=== PATIENT | female | born 1975 | race American Indian/Alaskan Native ===

== ENCOUNTER 2016-07-18 08:09 | Emergency (ER) | payer OTHER ==
[2016-07-18 08:35] VITALS: BP 152/102
--- NOTE | 2016-07-18 09:22 | Emergency Department Report ---
ED Extremity Problem HPI - General Chief complaint: Extremity Injury, Lower Stated complaint: LEFT KNEE AND ANKLE PAIN Time Seen by Provider: 07/18/16 09:16 Source: patient Mode of arrival: Ambulatory Limitations: No Limitations - History of Present Illness Initial comments: 40-year-old female comes in today for complaint of right knee and ankle pain. Patient denies any trauma to the leg. 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 Patient does have a past medical history of hypertension she is currently on amlodipine 10 mg by mouth daily as well as lisinopril 40 mg by mouth daily. She does admit that her primary care provider struggling with maintaining her blood pressure. Patient does have a history of migraines which responds to BC mett-slo-yebymfa med. Patient does admit that she's had a hysterectomy. MD Complaint: extremity pain, extremity swelling -: month(s) (2) Location: right, knee History of Same: Yes Radiation: none Severity scale (0 -10): 6 Quality: aching, sharp Consistency: intermittent Improves with: medication, rest Worsens with: walking Associated Symptoms: denies other symptoms - Related Data Previous Rx's Medication Instructions Recorded Last Taken Type Lisinopril [Zestril TAB] 20 mg PO DAILY #30 tablet 09/18/13 Unknown Rx predniSONE [Deltasone] 20 mg PO QDAY #12 tab 09/18/13 Unknown Rx Ibuprofen [Motrin] 800 mg PO Q8H PRN #20 tablet 11/22/13 Unknown Rx Potassium Chloride [K-Dur] 20 meq PO QDAY #5 tablet 08/25/14 Unknown Rx Lisinopril [Zestril TAB] 40 mg PO QDAY #30 tablet 10/07/15 Unknown Rx Ibuprofen [Motrin 800 MG tab] 800 mg PO Q8HR PRN #90 tablet 07/18/16 Unknown Rx Allergies Allergy/AdvReac Type Severity Reaction Status Date / Time shellfish derived Allergy Hives Verified 09/17/13 20:33 ED Review of Systems ROS: Stated complaint: LEFT KNEE AND ANKLE PAIN Other details as noted in HPI ED Past Medical Hx - Past Medical History Previous Medical History?: Yes Hx Hypertension: Yes Hx CVA: No Hx Heart Attack/AMI: No Hx Congestive Heart Failure: No Hx Diabetes: No Hx Deep Vein Thrombosis: No Hx Pulmonary Embolism: No Hx GERD: No Hx Liver Disease: No Hx Renal Disease: No Hx of Cancer: No Hx Sickle Cell Disease: No Hx Arthritis: No Hx Headaches / Migraines: Yes (migraines) Hx Seizures: No Hx Kidney Stones: No Hx Psychiatric Treatment: No Hx Asthma: No Hx COPD: No Hx Tuberculosis: No Hx Dementia: No Hx HIV: No Additional medical history: Migraines - Surgical History Hx Coronary Stent: No Hx Open Heart Surgery: No Hx Pacemaker: No Hx Internal Defibrillator: No Hx Cholecystectomy: No Hx Appendectomy: No Hx Breast Surgery: No Additional Surgical History: hysterectomy - Social History Smoking Status: Never Smoker - Medications Home Medications: Home Medications Medication Instructions Recorded Confirmed Last Taken Type Lisinopril [Zestril TAB] 20 mg PO DAILY #30 tablet 09/18/13 11/22/13 Unknown Rx predniSONE [Deltasone] 20 mg PO QDAY #12 tab 09/18/13 11/22/13 Unknown Rx Ibuprofen [Motrin] 800 mg PO Q8H PRN #20 tablet 11/22/13 Unknown Rx Potassium Chloride [K-Dur] 20 meq PO QDAY #5 tablet 08/25/14 Unknown Rx Lisinopril [Zestril TAB] 40 mg PO QDAY #30 tablet 10/07/15 Unknown Rx Ibuprofen [Motrin 800 MG tab] 800 mg PO Q8HR PRN #90 tablet 07/18/16 Unknown Rx ED Physical Exam - General Limitations: No Limitations General appearance: alert, in no apparent distress - Head Head exam: Present: atraumatic, normocephalic - Expanded Lower Extremity Exam Right Knee exam: Present: full ROM, crepidus. Absent: tenderness, swelling, ecchymosis, deformity Lower Leg exam: Present: normal inspection, full ROM. Absent: tenderness, swelling Ankle exam: Present: normal inspection, full ROM, swelling (lateral malleolus). Absent: tenderness Neuro vascular tendon exam: Present: no vascular compromise. Absent: pulse deficit ED Course Vital Signs 07/18/16 07/18/16 08:34 08:49 Temperature 98.3 F 98.3 F Pulse Rate 81 81 Respiratory 18 12 Rate Blood Pressure 152/102 Blood Pressure 152/102 [Right] O2 Sat by Pulse 100 100 Oximetry ED Medical Decision Making - Radiology Data Radiology results: report reviewed, image reviewed Findings: Narrowing of medial compartment and patellofemoral compartment knee joint. Sclerotic articular surfaces with peripheral osteophytes suggestive of degenerative changes. No fracture. No soft tissue calcification. Impression: Moderate degenerative changes medial compartment of the knee joint with mild degenerative changes of the patellofemoral compartment. Transcribed By: PTP Dictated By: HANG BUNCH MD Electronically Authenticated By: HANG BUNCH MD Signed Date/Time: 07/18/16949 DD/ 7 TD/TT: 07/18/16949 - Medical Decision Making Patient's been evaluated by this provider in fast track. We will give patient ibuprofen 800 mg for pain control. We will order a x-ray of the right knee. Discussed patient that this is most likely the beginnings of arthritis. Patient verbalizes understanding. Critical care attestation.: If time is entered above; I have spent that time in minutes in the direct care of this critically ill patient, excluding procedure time. ED Disposition Clinical Impression: Degenerative joint disease of knee, right Qualifiers: Osteoarthritis type: unspecified Qualified Code(s): M17.9 - Osteoarthritis of knee, unspecified Ankle pain, right Qualifiers: Chronicity: unspecified Qualified Code(s): M25.571 - Pain in right ankle and joints of right foot Disposition: DISCHARGED TO HOME OR SELFCARE Is pt being admited?: No Does the pt Need Aspirin: No Condition: Stable Additional Instructions: Please take naproxen as needed. U have her overuse of your knees and also moderate degenerative changes. Recommend to follow-up with orthopedic.. Prescriptions: Ibuprofen [Motrin 800 MG tab] 800 mg PO Q8HR PRN #90 tablet PRN Reason: Pain Referrals: PRIMARY CAREMD [Primary Care Provider] - 3-5 Days STORM HERCULES MD [Staff Physician] - 3-5 Days [facility] [Provider Group] - 3-5 Days [facility] [Provider Group] - 3-5 Days [facility], [Provider Group] - 3-5 Days Forms: Work/School Release Form(ED)
--- NOTE | 2016-07-18 09:59 | XRay Report ---
Right knee 2 views: History: Knee pain and swelling. Findings: Narrowing of medial compartment and patellofemoral compartment knee joint. Sclerotic articular surfaces with peripheral osteophytes suggestive of degenerative changes. No fracture. No soft tissue calcification. Impression: Moderate degenerative changes medial compartment of the knee joint with mild degenerative changes of the patellofemoral compartment.
[2016-07-18] MEDS ORDERED: NAPROSYN PO ONE (10:00)
== END 2016-07-18 10:45 | disposition home or self-care (01) ==
LOC: ED 08:09
DX: M17.11 Unilateral primary osteoarthritis, right knee (principal); M25.571 Pain in right ankle and joints of right foot; I10 Essential (primary) hypertension; G43.909 Migraine, unspecified, not intractable, without status migrainosus; Z91.013 Allergy to seafood

== ENCOUNTER 2017-05-04 16:33 | Emergency (ER) | payer OTHER ==
[2017-05-04 17:12] VITALS: BP 161/104
== END 2017-05-05 02:31 | disposition left against medical advice (07) ==
LOC: ED 16:33
DX: J11.1 Influenza due to unidentified influenza virus with other respiratory manifestations (principal); Z53.21 Procedure and treatment not carried out due to patient leaving prior to being seen by health care provider

== ENCOUNTER 2017-08-03 17:51 | Emergency (ER) | payer SELFPAY ==
[2017-08-03] MEDS ORDERED: MOTRIN PO ONE (20:09)
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
--- NOTE | 2017-08-03 20:21 | XRay Report ---
FINAL REPORT EXAM: XR ANKLE 3+V RT HISTORY: pain/swelling right ankle r/t injury TECHNIQUE: 3 views of right ankle. PRIORS: None. FINDINGS: No apparent fracture or dislocation. Ankle mortise maintained. Mild plantar calcaneal spurring. Lateral soft tissue edema. IMPRESSION: 1. No acute osseous abnormality. 2. Soft tissue edema.
[2017-08-03 20:58] VITALS: BP 139/91
== END 2017-08-03 20:56 | disposition home or self-care (01) ==
LOC: ED 17:51
DX: M25.571 Pain in right ankle and joints of right foot (principal); M79.89 Other specified soft tissue disorders; I10 Essential (primary) hypertension; G43.909 Migraine, unspecified, not intractable, without status migrainosus; Z90.710 Acquired absence of both cervix and uterus; Z91.013 Allergy to seafood

== ENCOUNTER 2019-03-02 17:04 | Emergency (ER) | payer OTHER ==
--- NOTE | 2019-03-02 17:16 | Event Note ---
ED Screening Note Date of service: 03/02/19 Time: 17:15 ED Screening Note: This is a 43 y.o. F. that presents to the ER with headache for 3 days. PMH of migraines, DJD, and HTN Taking goody powder with no relief. This initial assessment/diagnostic orders/clinical plan/treatment(s) is/are sub ject to change based on patients health status, clinical progression and re- assessment by fellow clinical providers in the ED. Further treatment and workup at subsequent clinical providers discretion. Patient/guardian urged not to elope from the ED as their condition may be serious if not clinically assessed and managed. Initial orders include:
[2019-03-02 17:17] VITALS: BP 114/87
[2019-03-02] MEDS ORDERED: predniSONE 20 MG TAB PO ONE (17:50)
[2019-03-02] MEDS ORDERED: KETOROLAC 60 MG/2 ML INJ IM ONE (17:50)
--- NOTE | 2019-03-02 17:50 | Emergency Department Report ---
ED Headache HPI - General Chief Complaint: Headache Stated Complaint: MIGRANE 3 DAYS Time Seen by Provider: 03/02/19 17:15 Source: patient - History of Present Illness Initial Comments: 43 YO COMES TO ER W A/C MIGRAINE PAIN HOME MEDS PPI CARBAMAZEPINE COREG TONYA AMITRIP. IS NOT TAKING HER FIORCET/IMITREX OR OTHER MIGRAINE MEDS NO TRAUMA NO FEVER NO CHILLS AMBULATORY AND IN NAD ALLERGY LISINOPRIL AND SHELL FISH Recent Head Trauma: chronic headaches Associated Symptoms: denies symptoms Allergies/Adverse Reactions: Allergies shellfish derived Allergy (Verified 09/17/13 20:33) Hives Home Medications: Ambulatory Orders Butalb/Acetamin/Caff 50-325-40 [Fioricet 50-325-40] 1 tab PO Q8HR PRN #10 tablet 03/02/19 ED Review of Systems ROS: Stated complaint: MIGRANE 3 DAYS Other details as noted in HPI Comment: All other systems reviewed and negative ED Past Medical Hx - Past Medical History Previous Medical History?: Yes Hx Hypertension: Yes Hx CVA: No Hx Heart Attack/AMI: No Hx Congestive Heart Failure: No Hx Diabetes: No Hx Deep Vein Thrombosis: No Hx Pulmonary Embolism: No Hx GERD: No Hx Liver Disease: No Hx Renal Disease: No Hx Sickle Cell Disease: No Hx Arthritis: No Hx Headaches / Migraines: Yes (migraines) Hx Seizures: No Hx Kidney Stones: No Hx Psychiatric Treatment: No Hx Asthma: No Hx COPD: No Hx Tuberculosis: No Hx Dementia: No Hx HIV: No Additional medical history: Migraines - Surgical History Past Surgical History?: Yes Hx Coronary Stent: No Hx Open Heart Surgery: No Hx Pacemaker: No Hx Internal Defibrillator: No Hx Cholecystectomy: No Hx Appendectomy: No Hx Breast Surgery: No Additional Surgical History: hysterectomy/Fx jaw 2018 - Family History Family history: no significant - Social History Smoking Status: Never Smoker Substance Use Type: None - Medications Home Medications: Home Medications Medication Instructions Recorded Confirmed Last Taken Type Butalb/Acetamin/Caff 50-325-40 1 tab PO Q8HR PRN #10 tablet 03/02/19 Unknown Rx [Fioricet 50-325-40] ED Physical Exam - General Limitations: No Limitations General appearance: alert, in no apparent distress - Head Head exam: Present: atraumatic, normocephalic - Eye Eye exam: Present: normal appearance - ENT ENT exam: Present: mucous membranes moist - Neck Neck exam: Present: normal inspection - Respiratory Respiratory exam: Present: normal lung sounds bilaterally. Absent: respiratory distress - Cardiovascular Cardiovascular Exam: Present: regular rate, normal rhythm. Absent: systolic murmur, diastolic murmur, rubs, gallop - GI/Abdominal GI/Abdominal exam: Present: soft, normal bowel sounds - Extremities Exam Extremities exam: Present: normal inspection - Back Exam Back exam: Present: normal inspection - Neurological Exam Neurological exam: Present: alert, oriented X3 - Psychiatric Psychiatric exam: Present: normal affect, normal mood - Skin Skin exam: Present: warm, dry, intact, normal color. Absent: rash ED Course Vital Signs 03/02/19 17:14 Temperature 98.7 F Pulse Rate 88 Respiratory 18 Rate Blood Pressure 114/87 O2 Sat by Pulse 98 Oximetry ED Medical Decision Making - Medical Decision Making Vital Signs 03/02/19 17:14 Temperature 98.7 F Pulse Rate 88 Respiratory 18 Rate Blood Pressure 114/87 O2 Sat by Pulse 98 Oximetry NO TRAUMA NO FEVER OR CHILLS SEVERAL DAY HX IN SETTING OF A/C MIGRAINE PAIN NO N /V NO PHOTOPHOBIA NEURO INTACT AMBULATORY AND NON ILL APPEARING "MY USUAL MIGRAINE" NOT RELIEVED WITH GOODY'S POWDER MEDICATED IN ER DC HOME WITH PCP/NEURO FOLLOW UP SHE VERBALIZES UNDERSTANDING - Differential Diagnosis A/C MIGRAINE PAIN Critical care attestation.: If time is entered above; I have spent that time in minutes in the direct care of this critically ill patient, excluding procedure time. ED Disposition Clinical Impression: Migraine Disposition: DC-01 TO HOME OR SELFCARE Is pt being admited?: No Does the pt Need Aspirin: No Condition: Stable Instructions: Migraine Headache (ED) Additional Instructions: HYDRATE WELL WITH WATER MEDS ORDERED TONIGHT CONTINUE HOME MEDS FOLLOW UP WITH PCP OR NEURO MD REFERRAL BELOW Prescriptions: Butalb/Acetamin/Caff 50-325-40 [Fioricet 50-325-40] 1 tab PO Q8HR PRN #10 tablet PRN Reason: Headache Referrals: TREV FOREMAN MD [Referring] - 3-5 Days Time of Disposition: 17:50
[2019-03-02] MEDS ORDERED: BUTALB/ACETAMINOPHEN/CAFFEINE TAB PO ONE (17:51)
== END 2019-03-02 18:13 | disposition home or self-care (01) ==
LOC: ED 17:04
DX: G43.909 Migraine, unspecified, not intractable, without status migrainosus (principal); I10 Essential (primary) hypertension; Z90.710 Acquired absence of both cervix and uterus; Z91.018 Allergy to other foods
CPT/HCPCS: 96372; 99282; J1885; J7512

== ENCOUNTER 2021-11-29 08:47 | Outpatient (CLI) | payer OTHER ==
--- NOTE | 2021-11-29 11:58 | XRay Report ---
Bilateral knees-2 views each INDICATION: BILATERAL KNEE PAIN. COMPARISON: None available. IMPRESSION: No acute osseous abnormality. Normal alignment. Moderate tricompartmental DJD in both k nees. Soft tissues are unremarkable. Signer Name: Tim Demarco MD Signed: 11/29/2021 11:54 AM Workstation Name: [id number]
--- NOTE | 2021-11-29 11:58 | XRay Report ---
Lumbar spine-3 views INDICATION: BACK PAIN. COMPARISON: None. IMPRESSION: Gentle levoscoliosis centered at T11 with normal AP alignment. Mild lower lumbar discog enic DJD at L5/S1 with mild multilevel facet arthropathy. No acute osseous or soft tissue abnormalit y. Signer Name: Tim Demarco MD Signed: 11/29/2021 11:53 AM Workstation Name: [id number]
== END 2021-11-29 08:48 | disposition home or self-care (01) ==
LOC: XRAY 08:47
PROVIDERS: ATTEND Internal Medicine
DX: Z02.71 Encounter for disability determination (principal); M17.0 Bilateral primary osteoarthritis of knee; M47.816 Spondylosis without myelopathy or radiculopathy, lumbar region
CPT/HCPCS: 72100